=== PATIENT | female | born 1985 | race Caucasian/White ===

== ENCOUNTER 2019-12-28 16:40 | Emergency (ER) | payer OTHER, SELFPAY ==
--- NOTE | ~2019-12-28 | XR_ITS ---
EXAMINATION: XR chest 2V DATE: 12/28/2019 17:35 INDICATION: Cough TECHNIQUE: PA and lateral views of the chest are obtained. COMPARISON: None available FINDINGS: The lungs are free of acute opacities. There is no pleural effusion or pneumothorax. The ca rdiomediastinal silhouette is normal. The visualized bones and soft tissues are unremarkable. IMPRESSION: 1. No acute cardiopulmonary abnormality. Reviewed, dictated and finalized at location A.
[2019-12-28 16:46] VITALS: BP 93/70; PULSE 85; RESP 20; TEMP 37.2; O2SAT 98
--- NOTE | 2019-12-28 17:16 | ED.GENADULT ---
HPI - General Adult General Chief complaint: Upper Respiratory Infection Stated complaint: cough/chest congestion/sore throat/headache Time Seen by Provider: 12/28/19 17:16 Source: patient and RN notes reviewed Mode of arrival: ambulatory Limitations: no limitations History of Present Illness HPI narrative: This is a 34 years old female presented office for evaluation of cough for the last 5-day. Cough was productive at the beginning and has been nonproductive for the last 2-day. She also reported a lot of sinus drainage and sore throat. She also reported headache which she contributes to nonstop coughing. She has tried [id number] guaifenesin for cough with helped temporarily but did not help reduce her cough. Denies sick contact. She does not smoke. Related Data Home Medications Medication Instructions Recorded Confirmed Suboxone 12/28/19 bupropion HCl PO 12/28/19 sumatriptan succinate mg PO 12/28/19 topiramate 12/28/19 Allergies Allergy/AdvReac Type Severity Reaction Status Date / Time amoxicillin Allergy Unknown SERUM Verified 06/04/18 19:06 SICKNESS Sulfa (Sulfonamide AdvReac Unknown THRUSH Verified 06/04/18 19:06 Antibiotics) Review of Systems Review of Systems: Narrative: CONSTITUTIONAL: Denies fever, chills ENT:Reports congestion, sore throat CARDIOVASCULAR: Denies chest pain, palpitation RESPIRATORY: Denies dyspnea, wheezing. Reports annoying cough GASTROINTESTINAL: Denies abdominal pain, nausea, vomiting GENITOURINARY: Denies urinary symptoms or discharge SKIN: Denies rash MUSCULOSKELETAL: Denies acute back pain NEUROLOGIC: Denies lightheaded All other systems reviewed are negative, except as documented in HPI. PMFSH Past Medical History Medical History (Updated 12/28/19 @ 18:01 by HANDY Faustin) History of colitis Hx of migraines Social History Social History (Updated 12/28/19 @ 17:29 by HANDY Faustin) Smoking status: Never smoker Comments At time of signature, I agree with nursing past medical, surgical, social and family history. There is no relevant family history pertinent to the presenting complaint. Exam Narrative: Exam Narrative: GENERAL: This is a well-nourished, well-developed patient, in no apparent distress. EYES: PERRL. Sclera clear/white. Vision is grossly intact. EARS: External ears normal, auditory canals clear and without drainage, TMs normal without perforation. Hearing grossly intact. NOSE: External nose normal with no obvious nasal discharge, nares without redness, no rhinorrhea. THROAT: Mucous membranes moist, posterior pharynx clear. NECK: Neck supple, non-tender without lymphadenopathy, masses or thyromegaly. CARDIOVASCULAR: Regular rate and rhythm without murmurs, gallops, or rubs. RESPIRATORY: Clear to auscultation. Breath sounds equal bilaterally. No wheezes, rales, or rhonchi. GASTROINTESTINAL: Abdomen soft, non-tender, nondistended. Bowel sounds are active. No hepato-splenomegaly, or palpable masses. No guarding. SKIN: warm, intact with no suspicious lesions or rash, good texture and turgor. NEURO: awake, alert, and oriented to person, place and time. There were no obvious focal neurologic abnormalities. Steady gait EXTREMITIES: Normal range of motion. No edema. No calf tenderness. Negative Homans sign bilaterally. BACK: Nontender without deformity or crepitance. No flank tenderness. Maxim Coma Scale Eye Opening: Spontaneous 4 [place] Coma Scale Motor: Obeys Commands 6 [place] Coma Scale Verbal: Oriented 5 Course Vital Signs Vital signs: Vital Signs Temperature 98.9 F 12/28/19 16:46 Pulse Rate 85 12/28/19 16:46 Respiratory Rate 12/28/19 16:46 Blood Pressure 93/70 L 12/28/19 16:46 Pulse Oximetry 98 12/28/19 16:46 Temperature 98.9 F 12/28/19 16:46 Pulse Rate 85 12/28/19 16:46 Respiratory Rate 12/28/19 16:46 Blood Pressure 93/70 L 12/28/19 16:46 Pulse Oximetry 98 12/28/19 16:
[2019-12-28] MEDS: ALBUTEROL SULFATE NEB 2.5 MG/3 ML INH INHALATION (17:38)
[2019-12-28] MEDS: IPRATROPIUM BR 0.02% INH SOLN 0.5 MG/2.5 ML VIAL INHALATION (17:38)
== END 2019-12-28 18:05 | disposition home or self-care (01) ==
PROVIDERS: Emergency Provider Nurse Practitioner; PCP Nurse Practitioner
DX: J06.9 Acute upper respiratory infection, unspecified (principal); J40 Bronchitis, not specified as acute or chronic; Z20.828 Contact with and (suspected) exposure to other viral communicable diseases
CPT/HCPCS: 71046; 99213; G0463

== ENCOUNTER 2020-08-23 14:26 | Emergency (ER) | payer OTHER, SELFPAY ==
--- NOTE | 2020-08-23 14:34 | ED.GENADULT ---
HPI - General Adult General Chief complaint: Abdominal Pain Stated complaint: pain in upper abdomen and up Time Seen by Provider: 08/23/20 14:34 Source: patient Mode of arrival: ambulatory Limitations: no limitations History of Present Illness HPI narrative: 34-year-old female patient presents to the [facility] with complaints of epigastric pain that started about 4 days ago and has intermittently gotten worse over the last 4 days. Patient states she has tried taking Tums, and some Pepcid [id number]. Patient states it is now causing her to cough, clear her throat and feels like at times she has a sore throat. Patient states it does feel at times like she has some acid or burning going up her chest from her epigastric area. Denies any vomiting, diarrhea or fevers. Patient denies shortness of breath at this time. Related Data Home Medications Medication Instructions Recorded Confirmed bupropion HCl 300 mg PO DAILY 12/28/19 08/23/20 sumatriptan succinate 50 mg PO .PRN PRN 12/28/19 08/23/20 topiramate 50 mg PO DAILY 12/28/19 08/23/20 buprenorphine-naloxone 1 film BUCCAL TID 08/23/20 08/23/20 Allergies Allergy/AdvReac Type Severity Reaction Status Date / Time amoxicillin Allergy Unknown SERUM Verified 08/23/20 14:46 SICKNESS Sulfa (Sulfonamide AdvReac Unknown THRUSH Verified 08/23/20 14:46 Antibiotics) Review of Systems Review of Systems: Narrative: CONSTITUTIONAL: Denies fever, chills, or sweats. EYES: Denies visual changes, redness, or discharge. ENT: Denies rhinorrhea, congestion, positive sore throat, or denies otalgia. CARDIOVASCULAR: Denies chest pain, palpitations, or edema. RESPIRATORY: Positive nonproductive cough, denies dyspnea. GASTROINTESTINAL: Denies abdominal pain, nausea, vomiting, or diarrhea. Positive epigastric pain x4 days GENITOURINARY: Denies dysuria or hematuria. SKIN: Denies rash or itching. MUSCULOSKELETAL: Denies back pain, joint pain, or myalgia. NEUROLOGIC: Denies headache, numbness, or weakness. PSYCHIATRIC: Denies anxiety or depression. [facility] Past Medical History Medical History (Updated 08/23/20 @ 14:58 by HANDY Deleon) Anxiety Bronchitis Depression History of colitis Hx of migraines Kidney stones Left inguinal hernia Pneumonia June 2016 Prolapsed bladder Surgical History Surgical History (Updated 08/23/20 @ 14:36 by HANDY Deleon) H/O tubal ligation History of hysterectomy Social History Social History (Updated 08/23/20 @ 14:36 by HANDY Deleon) Smoking status: Never smoker Substance use: former Other substance usage details: Patient on Suboxone Comments At the time of my signature I agree with nursing past medical history, surgical, social, and family history. There is no relevant family history pertinent to the presenting complaint. Exam Narrative: Exam Narrative: GENERAL: Well-appearing, well-nourished, and in no acute distress. HEAD: Normocephalic, atraumatic. EYES: PERRLA and EOMI. ENT: Nares clear, no rhinorrhea or epistaxis. Mucous membranes moist. Posterior pharynx with no erythema, tonsillar Marlon, exudates or lesions present. Bilateral TMs are clear with no erythema or foreign bodies in the canal. NECK: Supple. No lymphadenopathy CHEST: Clear to auscultation. No respiratory distress. Patient able talk in clear complete sentences. No tripoding noted. HEART: Regular rate and rhythm. No murmur heard. Normal peripheral pulses. ABDOMEN: Soft, flat, nondistended. No guarding, rebound tenderness, or rigid. No pulsatilla masses. Bowel sounds present in all four quadrants. No organomegaly. Negative Montaño?s sign. No periumbicial tenderness. No Supra public tenderness or distension. Good femoral pulses bilaterally. No hernia noted. No scars or surface trauma. EXTREMITIES: Normal range of motion. No edema. SKIN: Warm, dry, no rash. NEURO: No focal deficits. Alert and oriented x3. Course Reevaluation(s) Reevaluat
[2020-08-23 14:42] VITALS: BP 119/68; PULSE 92; RESP 18; TEMP 36.1; O2SAT 97
[2020-08-23] MEDS: LIDOCAINE HCL 2% VISC SOLN 15 ML UDC PO ×2 (14:55→15:50)
[2020-08-23] MEDS: MAG HYDROX/AL HYDROX/SIMETH 30 ML UDC PO ×2 (14:55→15:50)
== END 2020-08-23 15:54 | disposition home or self-care (01) ==
PROVIDERS: Emergency Provider Nurse Practitioner Family; PCP Nurse Practitioner
DX: K21.9 Gastro-esophageal reflux disease without esophagitis (principal); F41.9 Anxiety disorder, unspecified; F32.9 Major depressive disorder, single episode, unspecified
CPT/HCPCS: 99213; A9270; G0463

== ENCOUNTER 2022-07-17 09:01 | Emergency (ER) | payer OTHER, SELFPAY ==
[2022-07-17 09:05] VITALS: BP 111/67; PULSE 90; RESP 16; TEMP 36.8; O2SAT 100
--- NOTE | 2022-07-17 09:34 | ED.DENTAL ---
HPI - Dental/Oral General Chief complaint: Dental/Oral Stated complaint: Abcess tooth Time Seen by Provider: 07/17/22 09:35 Source: patient, RN notes reviewed and old records reviewed Mode of arrival: ambulatory Limitations: no limitations History of Present Illness HPI Narrative: 36-year-old female presents to [facility] with complaints of dental pain to the left lower molar which broke off 2 weeks ago. Patient states 4 days ago she started having pain to that area and has noted some purulent drainage also from region with an abscess busting on gum this morning when she brushed her teeth with some bruising on gum noted.Patient does have mild swelling noted to her left jaw area. Patient denies any difficulty swallowing or any shortness of breath. Patient reports she has been taking ibuprofen for her discomfort. MD Complaint: tooth pain Location: Tooth # (18) Onset (ago): day(s) (4) Treatment prior to arrival: oral analgesic (ibuprofen) Related Data Home Medications Medication Instructions Recorded Confirmed buprenorphine 8 mg-naloxone 2 mg 1 film buccal TID 08/23/20 07/17/22 sublingual film Allergies Allergy/AdvReac Type Severity Reaction Status Date / Time amoxicillin Allergy Unknown SERUM Verified 07/17/22 09:31 SICKNESS Sulfa (Sulfonamide AdvReac Unknown THRUSH Verified 07/17/22 09:31 Antibiotics) Review of Systems Review of Systems: CONSTITUTIONAL: Denies fever, chills, or sweats. ENT: Denies rhinorrhea, congestion, sore throat, or otalgia. Reports dental pain to #18 tooth which is broken off and has some left jaw swelling and drainage from gum area. CARDIOVASCULAR: Denies chest pain, palpitations, or edema. RESPIRATORY: Denies cough or dyspnea. SKIN: Denies rash or itching. MUSCULOSKELETAL: Denies myalgia. NEUROLOGIC: Denies headache All systems reviewed & are unremarkable except as noted in HPI and below PMFSH Past Medical History Medical History (Updated 07/17/22 @ 09:54 by Betzy Mclean NP) Anxiety Bronchitis Depression History of colitis Hx of migraines Kidney stones Left inguinal hernia Pneumonia June 2016 Prolapsed bladder Surgical History Surgical History H/O tubal ligation History of hysterectomy Social History Social History Smoking status: Never smoker Substance use: former Other substance usage details: Patient on Suboxone Comments At time of signature, agree with nursing past medical, surgical, social and family history. There is no relevant family history pertinent to the presenting complaint Exam Narrative: GENERAL: Well-appearing, well-nourished, and in no acute distress. HEAD: Normocephalic, atraumatic. EYES: PERRLA and EOMI. ENT: Nares clear, no rhinorrhea or epistaxis. Mucous membranes moist. Broken tooth to #18 with drainage from gum, facial swelling to left jaw area, no trismus or any Denis angina noted NECK: Supple.no lymphadenopathy CHEST: Clear to auscultation. No respiratory distress.No couth or congestion noted, SAO2 100% on room air HEART: Regular rate and rhythm. No murmur heard. Normal peripheral pulses. SKIN: Warm, dry, no rash. NEURO: No focal deficits. Alert and oriented x3. Course Course Emergency Course: Patient is aware of diagnosis, understands and agrees to treatment plan. Anticipatory guidance given. Patient agrees to follow-up as directed and is aware of reasons to seek care at the emergency department. Portions of this record may have been created with voice recognition software Level of Care: Express Care Visit Vital Signs Vital signs: Vital Signs Temperature 36.8 C 07/17/22 09:05 Pulse Rate 90 07/17/22 09:05 Respiratory Rate 16 07/17/22 09:05 Blood Pressure 111/67 07/17/22 09:05 Pulse Oximetry 100 07/17/22 09:05 Oxygen Delivery Room Air 07/17/22 09:05 Temperature 36.8 C
== END 2022-07-17 09:58 | disposition home or self-care (01) ==
PROVIDERS: Emergency Provider Registered Nurse
DX: K04.7 Periapical abscess without sinus (principal); K02.9 Dental caries, unspecified; F41.9 Anxiety disorder, unspecified; F32.9 Major depressive disorder, single episode, unspecified
CPT/HCPCS: 99213; G0463

== ENCOUNTER 2023-04-06 13:06 | Emergency (ER) | payer OTHER, SELFPAY ==
[2023-04-06 13:12] VITALS: BP 118/57; PULSE 79; RESP 16; TEMP 36.4; O2SAT 98
--- NOTE | 2023-04-06 14:10 | ED.GENADULT ---
HPI - General Adult General Chief complaint: Upper Respiratory Infection Stated complaint: Headache/Sore Throat Source: patient Mode of arrival: ambulatory Limitations: no limitations History of Present Illness HPI narrative: Patient presents for evaluation of sick symptoms for last 2 days. Symptoms include sinus congestion, mucopurulent discharge from the nares, sore throat, productive cough of yellow sputum and chills. No fever, nausea, vomiting or diarrhea. No recent sick contacts to her knowledge. She has taken sudafed, ibuprofen and tylenol for her symptoms. She does not smoke. She has had sinus infections in the past and this feels similar. Related Data Home Medications Medication Instructions Recorded Confirmed buprenorphine 8 mg-naloxone 2 mg 1 film buccal TID 08/23/20 04/06/23 sublingual film sumatriptan succinate 50 mg tablet 50 mg PO USEASDIRECTD PRN Migraine 04/06/23 04/06/23 Headache Allergies Allergy/AdvReac Type Severity Reaction Status Date / Time amoxicillin Allergy Unknown SERUM Verified 07/17/22 09:31 SICKNESS Sulfa (Sulfonamide AdvReac Unknown THRUSH Verified 07/17/22 09:31 Antibiotics) Review of Systems Review of Systems: CONSTITUTIONAL: Reports chills. Denies fever or sweats. EYES: Denies visual changes, redness, or discharge. ENT: Repots sinus congestion, thick mucopurulent discharge from the nares, and sore throat CARDIOVASCULAR: Denies chest pain, palpitations, or edema. RESPIRATORY: Reports productive cough of white/yellow sputum. Denies GASTROINTESTINAL: Denies abdominal pain, nausea, vomiting, or diarrhea. GENITOURINARY: Denies dysuria or hematuria. SKIN: Denies rash or itching. MUSCULOSKELETAL: Denies back pain, joint pain, or myalgia. NEUROLOGIC: Denies headache, numbness, dizziness, or weakness. PSYCHIATRIC: Denies anxiety or depression. [facility] Past Medical History Medical History Anxiety Bronchitis Depression History of colitis Hx of migraines Kidney stones Left inguinal hernia Pneumonia June 2016 Prolapsed bladder Surgical History Surgical History H/O tubal ligation History of hysterectomy Family History Family History Mother Family history non-contributory Social History Social History Smoking status: Never smoker Substance use: former Other substance usage details: Patient on Suboxone Living arrangements: with family Gender identity (if verbalized by the patient): Female Spiritual care concerns: No Exam Narrative: GENERAL: Well-appearing, well-nourished, and in no acute distress. HEAD: Normocephalic, atraumatic. EYES: PERRLA and EOMI. ENT: Bilateral nares have thick mucopurulent discharge present. Bilateral maxillary and frontal sinus tenderness. Oropharynx without tonsillar hypertrophy exudate or other lesions. Bilateral TMs pearly haq nonbulging NECK: Supple. No adenopathy or masses. No carotid bruits or JVD CHEST: Clear to auscultation. No respiratory distress. No wheezes rales or rhonchi HEART: Regular rate and rhythm. No murmur heard. Normal peripheral pulses. ABDOMEN: Soft, nontender, nondistended, normal active bowel sounds. EXTREMITIES: Normal range of motion. No edema. SKIN: Warm, dry, no rash. NEURO: No focal deficits. Alert and oriented x3. PSYCH: Normal mood and affect. Course Course Emergency Course: This is a 37-year-old female who presented for evaluation of sick symptoms. COVID, influenza, strep, chest x-ray were all negative. Exam is consistent with bacterial sinusitis based upon the characteristics of discharge as mucopurulent. Will dc with doxycycline. Increase hydration. OTC agents for symptom management. Follow up with primary provider. Go t
== END 2023-04-06 14:22 | disposition home or self-care (01) ==
PROVIDERS: Emergency Provider Nurse Practitioner; PCP Physician Assistant
DX: J01.90 Acute sinusitis, unspecified (principal)
CPT/HCPCS: 87081; 87804; 87880; 99213; G0463

== ENCOUNTER 2023-04-13 11:17 | Emergency (ER) | payer OTHER, SELFPAY ==
--- NOTE | 2023-04-13 11:21 | ED.URI ---
HPI - URI/Sore Throat General Chief Complaint: Upper Respiratory Infection Stated Complaint: no voice/ears/sinus Source: patient and RN notes reviewed Mode of arrival: ambulatory Limitations: no limitations History of Present Illness HPI Narrative: Patient is a 37-year-old female who presents to the [facility] with complaints worsening sinus infection. Patient states that she was seen here last week and prescribed doxycycline for the a sinus infection. Patient states that her symptoms are getting worse instead of better. She reports nasal congestion, postnasal drip, sore throat, and losing her voice. She also endorses a frequent productive cough with green sputum. She denies recent fever. Denies chest pain or shortness of breath. Denies abdominal pain, nausea, vomiting, diarrhea. Patient states that she took an at-home COVID test this morning which was negative. Patient states that she has 3 days left of the doxycycline she was prescribed. Respirations are nonlabored. Related Data Home Medications Medication Instructions Recorded Confirmed buprenorphine 8 mg-naloxone 2 mg 1 film buccal TID 08/23/20 04/13/23 sublingual film sumatriptan succinate 50 mg tablet 50 mg PO USEASDIRECTD PRN Migraine 04/06/23 04/13/23 Headache Allergies Allergy/AdvReac Type Severity Reaction Status Date / Time amoxicillin Allergy Unknown SERUM Verified 04/13/23 11:26 SICKNESS Sulfa (Sulfonamide AdvReac Unknown THRUSH Verified 04/13/23 11:26 Antibiotics) Review of Systems Review of Systems: CONSTITUTIONAL: Denies fever, chills, or sweats. EYES: Denies visual changes, redness, or discharge. ENT: Denies otalgia. Reports sore throat. Reports nasal congestion. CARDIOVASCULAR: Denies chest pain, palpitations, or edema. RESPIRATORY: Reports cough but dyspnea. GASTROINTESTINAL: Denies abdominal pain, nausea, vomiting, or diarrhea. GENITOURINARY: Denies dysuria or hematuria. SKIN: Denies rash or itching. MUSCULOSKELETAL: Denies back pain, joint pain, or myalgia. NEUROLOGIC: Denies headache, numbness, or weakness. Pertinent positives per HPI. [facility] Past Medical History Medical History Anxiety Bronchitis Depression History of colitis Hx of migraines Kidney stones Left inguinal hernia Pneumonia June 2016 Prolapsed bladder Surgical History Surgical History H/O tubal ligation History of hysterectomy Family History Family History Mother Family history non-contributory Social History Social History Smoking status: Never smoker Substance use: former Other substance usage details: Patient on Suboxone Living arrangements: with family Gender identity (if verbalized by the patient): Female Spiritual care concerns: No Comments At the time of my signature, I reviewed and agree with the nursing past medical, surgical, social, and family history. There is no relevant family history pertinent to the patient complaint. Exam Narrative: GENERAL: This is a well-nourished, well-developed patient, in no apparent distress. HEAD: normocephalic, atraumatic. EYES: Sclera clear/white. Vision is grossly intact. EARS: External ears normal. Hearing grossly intact. NOSE: External nose normal. Mild congestion. THROAT: Mucous membranes moist, Oropharyngeal erythema without exudate or ulceration. NECK: Neck supple, non-tender without lymphadenopathy, masses or thyromegaly. CARDIOVASCULAR: Regular rate and rhythm without murmurs, gallops, or rubs. RESPIRATORY: Clear to auscultation. Breath sounds equal bilaterally. No wheezes, rales, or rhonchi. GASTROINTESTINAL: Abdomen soft, non-tender, nondistended. Bowel sounds are active. No hepato-splenomegaly, or palpable masses. No guarding. SKIN: war
[2023-04-13 11:28] VITALS: BP 101/72; PULSE 79; RESP 16; TEMP 36.2; O2SAT 100
== END 2023-04-13 12:00 | disposition home or self-care (01) ==
PROVIDERS: Emergency Provider Nurse Practitioner; PCP Physician Assistant
DX: B34.9 Viral infection, unspecified (principal); J01.90 Acute sinusitis, unspecified
CPT/HCPCS: 87081; 87880; 99213; G0463

== ENCOUNTER 2024-02-29 11:11 | Emergency (ER) | payer OTHER, SELFPAY ==
[2024-02-29 11:38] VITALS: BP 118/65; PULSE 70; RESP 20; TEMP 36.7; O2SAT 100
--- NOTE | 2024-02-29 12:29 | ED.GENADULT ---
HPI - General Adult General Chief complaint: Ear Stated complaint: headaches/left ear lump Time Seen by Provider: 02/29/24 12:29 Source: patient, RN notes reviewed and old records reviewed Mode of arrival: ambulatory Limitations: no limitations History of Present Illness HPI narrative: 38-year-old female presents to the [facility] with complaints of a headache and lump 2 below the left ear. Headache for week. Left ear discomfort started a day ago. Treatments prior to arrival: none Related Data Home Medications Medication Instructions Recorded Confirmed buprenorphine 8 mg-naloxone 2 mg 1 film buccal TID 08/23/20 02/29/24 sublingual film sumatriptan succinate 50 mg tablet 50 mg PO USEASDIRECTD PRN Migraine 04/06/23 02/29/24 Headache Allergies Allergy/AdvReac Type Severity Reaction Status Date / Time amoxicillin Allergy Unknown SERUM Verified 02/29/24 11:56 SICKNESS Sulfa (Sulfonamide AdvReac Unknown THRUSH Verified 02/29/24 11:56 Antibiotics) Review of Systems Review of Systems: All systems reviewed & are unremarkable except as noted in HPI and below Constitutional: Constitutional: Reports no additional constitutional complaints Eyes: Eyes: Reports no additional eye complaints ENT: Reports as per HPI and Reports otalgia Cardiovascular: Cardiovascular: Reports no additional cardiovascular complaints, Denies chest pain and Denies dyspnea Respiratory: Respiratory: Reports no additional respiratory complaints, Denies chest congestion, Denies cough and Denies dyspnea Gastrointestinal: Gastrointestinal: Reports no additional gastrointestinal complaints, Denies abdominal pain, Denies nausea and Denies vomiting Musculoskeletal: Musculoskeletal: Reports no additional musculoskeletal complaints Integumentary/Breasts: Skin/Breast: Reports system reviewed and no additional complaints, except as docu Neurologic: Reports system reviewed and no additional complaints, except as documented Psychiatric: Psychiatric: Reports no additional psychiatric complaints Allergic/Immunologic: Allergic/Immunologic: Reports no additional allergic/immunologic complaints [facility] Past Medical History Medical History Anxiety Bronchitis Depression History of colitis Hx of migraines Kidney stones Left inguinal hernia Pneumonia June 2016 Prolapsed bladder Surgical History Surgical History H/O tubal ligation History of hysterectomy Family History Family History Mother Family history non-contributory Social History Social History Smoking status: Never smoker Substance use: former Other substance usage details: Patient on Suboxone Living arrangements: with family Gender identity (if verbalized by the patient): Female Spiritual care concerns: No Comments At the time of my signature, I reviewed and agree with the nursing past medical, surgical, social, and family history. There is no relevant family history pertinent to the patient complaint. Exam Const: General: cooperative, healthy appearing, comfortable, no acute distress, well developed, alert and well nourished Nutritional Appearance: well nourished Orientation/consciousness: patient oriented x3 Limitations: no limitations HENMT: Head: normal to inspection Ears: hearing grossly normal bilaterally, external ears normal, TM's normal bilaterally and Abnormal EAC present erythema on the left and EAC tenderness on the left; no edema, no foreign body and no otic discharge Face/Nose/Sinus: Normal external nose present, Normal nares present, Normal nasal mucous membranes and turbinates present, normal facial exam and face symmetric Face and sinus: normal facial exam and face symmetric Eyes: General: appearance normal, both
== END 2024-02-29 12:50 | disposition home or self-care (01) ==
PROVIDERS: Emergency Provider Nurse Practitioner; PCP Physician Assistant
DX: H61.892 Other specified disorders of left external ear (principal)
CPT/HCPCS: 99213; G0463

== ENCOUNTER 2024-06-22 15:48 | Emergency (ER) | payer OTHER, SELFPAY ==
--- NOTE | 2024-06-22 16:01 | ED.FEMALEGU ---
HPI - Female Genitourinary General Chief complaint: Urogenital-Female Stated complaint: poss sinus infection/UTI Time Seen by Provider: 06/22/24 17:35 Source: patient, RN notes reviewed and old records reviewed Mode of arrival: ambulatory Limitations: no limitations History of Present Illness HPI Narrative: 38 year old female preent to express care with complaints of urinary burning and frequency for 1 week duration and has noted some blood in her urine and is cloudy. Patient also report other symptoms of sore throat sinus congestion and drainage for the past few days.Patient reports no fevers chills or any nausea or vomiting. Patient reports no CVA tenderness or any suprapubic pain. MD elicited complaint: UTI and other (sore throat and sinus congestion with drainage) Onset (ago): week(s) (1) Location of symptoms: urethra Severity scale (1-10): 3 Vaginal discharge: none Vaginal bleeding: none Treatment prior to arrival: acetaminophen Related Data Home Medications ?Medication ?Instructions ?Recorded ?Confirmed ?Last Taken ?Type buprenorphine 8 mg-naloxone 2 mg 1 film buccal TID 08/23/20 06/22/24 Unknown History sublingual film sumatriptan succinate 50 mg tablet 50 mg PO USEASDIRECTD PRN Migraine 04/06/23 02/29/24 Unknown History Headache topiramate 50 mg tablet mg 06/22/24 Unknown History Allergies Allergy/AdvReac Type Severity Reaction Status Date / Time amoxicillin Allergy Unknown SERUM Verified 06/22/24 16:14 SICKNESS Sulfa (Sulfonamide AdvReac Unknown THRUSH Verified 06/22/24 16:14 Antibiotics) Review of Systems Review of Systems: CONSTITUTIONAL: Denies fever, chills, or sweats. CARDIOVASCULAR: Denies chest pain, palpitations, or edema. RESPIRATORY: Denies cough or dyspnea. reports sore throat and sinus congestion and drainage GASTROINTESTINAL: Denies abdominal pain, nausea, vomiting, or diarrhea. GENITOURINARY: Reports dysuria, frequency, urgency. Denies flank pain positive for hematuria. SKIN: Denies rash or itching. MUSCULOSKELETAL: Denies back pain or myalgia. Denies CVA tenderness NEUROLOGIC: Denies headache All systems reviewed & are unremarkable except as noted in HPI and below PMFSH Past Medical History Medical History Anxiety Depression Prolapsed bladder Left inguinal hernia Pneumonia June 2016 Bronchitis Kidney stones Hx of migraines History of colitis Surgical History Surgical History History of hysterectomy H/O tubal ligation Family History Family History Mother Family history non-contributory Social History Social History Smoking status: Never smoker Substance use: former Other substance usage details: Patient on Suboxone Living arrangements: with family Gender identity (if verbalized by the patient): Female Spiritual care concerns: No Comments At time of signature, agree with nursing past medical, surgical, social and family history. There is no relevant family history pertinent to the presenting complaint Exam Narrative: GENERAL: Well-appearing, well-nourished, and in no acute distress. HEAD: Normocephalic, atraumatic. NECK: Supple.no lymphadenopathy, reports sore throat and sinus congestion with drainage no acute swelling of throat CHEST: Clear to auscultation. No respiratory distress. HEART: Regular rate and rhythm. No murmur heard. Normal peripheral pulses. ABDOMEN: Soft, nontender, nondistended, normal active bowel sounds. No CVA tenderness burning and frequency of urination with some blood noted in urine. EXTREMITIES: Normal range of motion. No edema. SKIN: Warm, dry, no rash. NEURO: No focal deficits. Alert and oriented x3. Course Course Emergency Course: Patient is aware of diagnosis, understands and agrees to treatment plan.? Anticipatory guidance given.? Patient agrees to follow-up as directed and is aware of reasons to seek care at the emergency department. Portions of this record may have been created with voice recognition software Level of Care: Express Care Visit Vital Signs Vital signs: Vital Signs Temperature 36.8 C 06/22/24 16:08 Pulse Rate 73 06/22/24 16:08 Respiratory Rate 18 06/22/24 16:08 Blood Pressure 123/51 L 06/22/24 16:08 Pulse Oximetry 100 06/22/24 16:08 Oxygen Delivery Room Air 06/22/24 16:08 Temperature 36.8 C 06/22/24 16:08 Pulse Rate 73 06/22/24 16:08 Respiratory Rate 18 06/22/24 16:08 Blood Pressure 123/51 L 06/22/24 16:08 Pulse Oximetry 100 06/22/24 16:08 Oxygen Delivery Room Air 06/22/24 16:08 MDM - Female Genitourinary MDM Narrative Medical decision making narrative: Exam findings and UA show no acute concerns or changes; patient is non-toxic appearing and is in no distress.? Patient is appropriate for outpatient treatment and follow-up. Differential Diagnosis Differential diagnosis: Likely urinary tract infection, cystitis and other (URI) Medical Records Attestation: I reviewed the patient's medical records. Lab Data Attestation: I reviewed the patient's lab results. Lab results narrative: strep screen negative, culture sent; see urine dip report positive for blood,leukocytes and nitrite positive Labs: Lab Results 06/22/24 06/22/24 Range/Units 16:14 16:41 POC Urine Color Yellow POC Urine Clarity Cloudy POC Urine pH 5.5 POC Ur Specif [place] 1.030 POC Urine Protein 1+ (Negative) POC Ur Glucose (UA) Negative (Negative) POC Urine Ketones Negative (Negative) POC Urine Blood Trace (Negative) POC Urine Nitrite Positive (Negative) POC Urine Bilirubin Negative (Negative) POC Urine Urobilinogen 0.2 POC U Leukocyte Esteras 1+ (Negative) POC Grp A Strep Screen Negative (Negative) reviewed Critical Care Time Critical Care Time Critical Care Time: No Discharge Plan Discharge Clinical Impression: Urinary tract infection Qualifiers: Urinary tract infection type: site unspecified Hematuria presence: with hematuria Qualified Code(s): N39.0 - Urinary tract infection, site not specified; R31.9 - Hematuria, unspecified Pharyngitis Qualifiers: Pharyngitis/tonsillitis etiology: unspecified etiology Qualified Code(s): J02.9 - Acute pharyngitis, unspecified Patient Disposition: Home, Self-Care Condition: Stable Instructions: Antibiotic Form, Urinary Tract Infection in Women (ED), Pharyngitis (ED) Additional Instructions: Increase fluids especially cranberry juice and water Avoid caffeine and carbonated beverages Antibiotic as directed Tylenol/ibuprofen for pain or fever Follow-up with her primary care provider if further problems or concerns Recheck if you have fever over 101, nausea and vomiting. Zyrtec Claritin or Nara daily include plain Sudafed for sinus congestion and drainage monitor for any fevers If your symptoms persist, change or worsen significantly before you can contact your personal physician then please, without delay, go to the emergency department for further evaluation. Follow-up with PCP in 7-10 days or sooner if needed Follow up with PCP soon in regards to your blood pressure which is elevated above threshold for referral. Blood pressure above 120/80 may indicate pre-hypertension. Patient Language: Belgian Prescriptions: New ciprofloxacin HCl 500 mg tablet 500 mg PO Q12H Qty: 14 0RF No Action sumatriptan succinate 50 mg tablet 50 mg PO USEASDIRECTD PRN (Reason: Migraine Headache) topiramate 50 mg tablet buprenorphine-naloxone 8-2 mg film 1 film buccal TID Follow-up/Referrals: Cassy,SEBAS Howard [Primary Care Provider] - Time of Disposition: 18:04 Quality [place] Coma Scale Eyes: Open Verbal: Oriented and Alert Motor: Follows Commands [place] Coma Total Score: 15
[2024-06-22 16:08] VITALS: BP 123/51; PULSE 73; RESP 18; TEMP 36.8; O2SAT 100
[2024-06-22 16:31] LABS: EDUAAPPEAR Cloudy; EDUABILI Negative (Negative); EDUABLOOD Trace (Negative); EDUACOLOR1 Yellow; EDUAGLUCOSE Negative (Negative); EDUAKETONE Negative (Negative); EDUALEUKO 1+ (Negative); EDUANITRATE Positive (Negative); EDUAPH 5.5; EDUAPROTEIN 1+ (Negative); EDUAUROBILI 0.2
[2024-06-22 18:08] LABS: EDSTREPNEGPOS1 Negative (Negative)
== END 2024-06-22 18:08 | disposition home or self-care (01) ==
PROVIDERS: Emergency Provider Registered Nurse; PCP Physician Assistant
DX: N39.0 Urinary tract infection, site not specified (principal); J02.9 Acute pharyngitis, unspecified; R31.9 Hematuria, unspecified; F41.8 Other specified anxiety disorders
CPT/HCPCS: 81003; 87077; 87081; 87086; 87186; 87880; 99213; G0463

== ENCOUNTER 2024-07-11 08:45 | Emergency (ER) | payer OTHER, SELFPAY ==
[2024-07-11 08:54] VITALS: BP 128/99; PULSE 97; RESP 18; TEMP 37.4; O2SAT 100
--- NOTE | 2024-07-11 08:54 | ED.FEMALEGU ---
HPI - Female Genitourinary General Chief complaint: Urogenital-Female Stated complaint: Urinary Problem Time Seen by Provider: 07/11/24 09:04 Source: patient and RN notes reviewed Mode of arrival: ambulatory Limitations: no limitations History of Present Illness HPI Narrative: 38-year-old female presents with concern for urinary tract infection. She reports she had a UTI 2 weeks ago and was treated with ciprofloxacin. Reports she felt better for about 2 days and then her symptoms returned about a week ago. She reports hematuria, it frequency, urgency, low back pain. She denies fever, chills, sweats. Reports nausea without vomiting. MD elicited complaint: UTI Related Data Home Medications ?Medication ?Instructions ?Recorded ?Confirmed ?Last Taken ?Type buprenorphine 8 mg-naloxone 2 mg 1 film buccal TID 08/23/20 06/22/24 Unknown History sublingual film sumatriptan succinate 50 mg tablet 50 mg PO USEASDIRECTD PRN Migraine 04/06/23 02/29/24 Unknown History Headache topiramate 50 mg tablet mg 06/22/24 Unknown History Allergies Allergy/AdvReac Type Severity Reaction Status Date / Time amoxicillin Allergy Unknown SERUM Verified 06/22/24 16:14 SICKNESS Sulfa (Sulfonamide AdvReac Unknown THRUSH Verified 06/22/24 16:14 Antibiotics) Review of Systems Review of Systems: CONSTITUTIONAL: Denies malaise, chills, sweats, or fever. CARDIOVASCULAR: Denies chest pain, palpitations, or edema. RESPIRATORY: Denies cough or dyspnea. GASTROINTESTINAL: Denies abdominal pain, vomiting, diarrhea. Reports nausea GENITOURINARY: Reports dysuria, frequency, urgency, hematuria. SKIN: Denies rash or itching. MUSCULOSKELETAL: Reports low back pain. Denies myalgia. All systems reviewed & are unremarkable except as noted in HPI and below PMFSH Past Medical History Medical History Anxiety Depression Prolapsed bladder Left inguinal hernia Pneumonia June 2016 Bronchitis Kidney stones Hx of migraines History of colitis Surgical History Surgical History History of hysterectomy H/O tubal ligation Family History Family History Mother Family history non-contributory Social History Social History Smoking status: Never smoker Substance use: former Other substance usage details: Patient on Suboxone Living arrangements: with family Gender identity (if verbalized by the patient): Female Spiritual care concerns: No Comments At time of signature, agree with nursing past medical, surgical, social and family history. There is no relevant family history pertinent to the presenting complaint Exam Narrative: GENERAL: Well-appearing, well-nourished, and in no acute distress. HEAD: Normocephalic. EYES: PERRLA, conjunctivae clear. NECK: Supple. No lymphadenopathy CHEST: Clear to auscultation. No respiratory distress. HEART: Regular rate and rhythm. ABDOMEN: Soft, nontender upon palpation, nondistended, normal active bowel sounds, no palpable or pulsatile masses, no guarding. No CVA tenderness SKIN: Warm, dry, no rash. NEURO: Alert and oriented x3. PSYCH: Normal mood and affect Course Course Emergency Course: Patient is aware of diagnosis, understands and agrees to treatment plan. Anticipatory guidance given. Patient agrees to follow-up as directed and is aware of reasons to seek care at the emergency department. Portions of this record may have been created with voice recognition software Level of Care: Express Care Visit Vital Signs Vital signs: Reviewed. MDM - Female Genitourinary MDM Narrative Medical decision making narrative: Exam findings and UA show no acute concerns or changes; patient is non-toxic appearing and is in no distress. Patient is appropriate for outpatient treatment and follow-up. Differential Diagnosis Differential diagnosis: Likely urinary tract infection and cystitis Critical Care Time Critical Care Time Critical Care Time: No Discharge Plan Discharge Clinical Impression: Urinary tract infection Patient Disposition: Home, Self-Care Condition: Stable Instructions: Antibiotic Form, Urinary Tract Infection in Women (ED) Additional Instructions: We will send a urine culture to the lab; if the culture identifies an organism that the prescribed antibiotic will not treat, you will receive a phone call from an urgent care staff member and an appropriate antibiotic will be prescribed. -Your symptoms should begin to improve within a day of starting antibiotics. But you should finish all the antibiotic pills you get. Otherwise your infection might come back. -Also recommend: increase water intake. Tylenol/ibuprofen as needed for pain or fever -Follow-up with your primary care provider for urine recheck or seek ER visit if condition worsens with high fever, nausea, vomiting and severe back pain. Patient Language: [place] Prescriptions: New levofloxacin 750 mg tablet 750 mg PO DAILY 5 Days Qty: 5 0RF No Action sumatriptan succinate 50 mg tablet 50 mg PO USEASDIRECTD PRN (Reason: Migraine Headache) topiramate 50 mg tablet buprenorphine-naloxone 8-2 mg film 1 film buccal TID Follow-up/Referrals: PHYSICIAN,[employer] OPERATOR [Primary Care Provider] - Time of Disposition: 09:11
[2024-07-11 09:03] LABS: EDUAAPPEAR Cloudy; EDUABILI Negative (Negative); EDUABLOOD Trace (Negative); EDUACOLOR1 Yellow; EDUAGLUCOSE Negative (Negative); EDUAKETONE Negative (Negative); EDUALEUKO 1+ (Negative); EDUANITRATE Positive (Negative); EDUAPROTEIN Trace (Negative); EDUAUROBILI 0.2
== END 2024-07-11 09:20 | disposition home or self-care (01) ==
PROVIDERS: Emergency Provider Nurse Practitioner
DX: N39.0 Urinary tract infection, site not specified (principal); B96.20 Unspecified Escherichia coli [E. coli] as the cause of diseases classified elsewhere
CPT/HCPCS: 81003; 87086; 87186; 99213; G0463

== ENCOUNTER 2025-05-08 17:32 | Emergency (ER) | payer OTHER, SELFPAY ==
--- OUTSIDE RECORDS SUMMARY | 2025-05-08 17:35 | XMS_ITS | Clinical Summary ---
Author Organization [facility] Address [address] [place] [address] Care Team Providers Care Straightedge Machine Operator Helper Name Role Phone Demond Barron MD Unavailable [phone] Anita Madera Primary Care Provider [phone] Taran Waddell NP Unavailable [phone] Allergies Active Allergy Reactions Criticality Noted Date Comments Amoxicillin Other (See comments) High Reaction: Serum Sickness, Potassium Other (See comments) High Reaction: Serum Sickness, Sulfa (Sulfonamide Antibiotics) Other (See comments) Low thrush Medications acetaminophen 500 mg capsule Take 2 capsules (1,000 mg total) by mouth every 6 (six) hours 30 tablet 05/11/2022 Active topiramate (TOPAMAX) 50 mg tablet Take 1 tablet (50 mg total) by mouth daily 07/19/2024 Active SUMAtriptan (IMITREX) 50 mg tablet Take 1 tablet (50 mg total) by mouth 2 (two) times a day as needed for migraine 08/22/2024 Active acetaminophen (TYLENOL) 325 mg tablet Take 2 tablets (650 mg total) by mouth every 6 (six) hours as needed for pain 09/08/2024 Active Active Problems Problem Noted Date Diagnosed Date Acute pyelonephritis 09/07/2024 Acute left flank pain 09/04/2024 Bloody diarrhea 04/04/2024 SBO (small bowel obstruction) 04/02/2024 Hematochezia 04/02/2024 Status post gastrointestinal surgery 06/04/2022 Fluid collection at surgical site, initial encou nter 05/08/2022 Prolapse of vaginal vault after hysterectomy JESÚS (stress urinary incontinence, female) 2021 Rectal prolapse 12/30/2021 Difficulty sleeping 02/26/2021 Assessment & Plan (02/26/2021 6:29 PM CDT): Patient vice use Benadryl at night to help with sleep. We discussed the adequate rest during the day can help with her symptoms. Chronic diarrhea 02/13/2021 Overview (02/13/2021): Well controlled on Lomotil and getting better. Dental caries 02/13/2021 IBD (inflammatory bowel disease) 02/13/2021 Overview (02/13/2021): Positive for Crohn IBS (irritable bowel syndrome) 02/13/2021 Assessment & Plan (02/26/2021 6:28 PM CDT): Patient used to have diarrhea but now she is having constipation. She has noticed more prominent lower abdominal pain. For better evaluation will schedule small- bowel series. Will address constipation. Follow-up in the office 6 weeks. Blood in stool 10/29/2020 Abdominal pain 10/29/2020 Assessment & Plan (02/26/2021 6:27 PM CDT): Likely secondary to the rectal bowel syndrome. Likely worsen because of the constipation. Discussed with the patient use Dulcolax 2 tablets every morning. Gastroesophageal reflux disease without esophagi tis 10/29/2020 Left flank pain 10/21/2017 Flank pain 10/21/2017 Ulcerative colitis with rectal bleeding 02/25/20 16 Overview (10/01/2016): Ulcerative colitis Left inguinal hernia 04/15/2015 Overview (10/01/2016): Left inguinal hernia Surgical History Surgery Date Site/Laterality Comments OTHER SURGICAL HISTORY 06/28/2012 - 06/27/2013 : OTHER SURGICAL HISTORY 06/28/2014 - 06/27/2015 : INGUINAL HERNIA REPAIR Inguinal Hernia repair OTHER SURGICAL HISTORY LGSIL pap with positive HR HPV: Colpo OTHER SURGICAL HISTORY 06/28/2014 - 06/27/2015 Sterilization: L/S bilat. salpingectomy COLPOSCOPY SALPINGECTOMY HERNIA REPAIR HYSTEROSCOPY 03/31/2017 [facility] COLONOSCOPY >8 yrs ago RECTAL PROLAPSE REPAIR 04/22/2022 Medical History Medical History Date Comments Hx Other Medical ; Outc ome: 39W0D week 8lb(s) 5 oz Female Hx Other Medical ; Outc ome: Live Hx Other Medical 01/2015 Nephrolithiasis Hx Other Medical 02/25/2016 LGSIL pap with positive HR HPV Hx Other Medical Sterilization Abnormal Pap smear of cervix Depression Migraine HPV (human papilloma virus) infection Kidney stone Inflammatory bowel disease Menorrhagia Ovarian cyst Pyelonephritis Urinary tract infection Varicella Chronic constipation PONV (postoperative nausea a nd vomiting) Family History Medical History Relation Name Comments Hypertension Father Hypertension; Breast cancer Father's Sister Cancer, lawanda ast; Colon cancer Father's Sister Diabetes Maternal Grandfather Diabete s mellitus; Heart disease Maternal Grandfather Heart disease; Diabetes Maternal Grandmother Diabete s mellitus; Heart disease Maternal Grandmother Heart disease; Breast cancer Other Cancer, breast ; Relation Name Status Comments Father Father's Sister Maternal Grandfather Maternal Grandmother Other Social History Tobacco Use Types Packs/Day Years Used Date Smoking Tobacco: Former Cigarettes Q uit: 2013 Smokeless Tobacco: Never Tobacco Cessation:Counseling Given: Not Answered Alcohol Use Standard Drinks/Week Comments No 0 (1 standard drink = 0.6 oz pur e alcohol) [employer] Answer Date Recorded In the past 12 months has [employer] oil, or water [employer] threatened to shut off services in your home? No 09/05/2024 Social Connection and Isolation Panel Answer Date Recorded In a typical week, how many times do you talk on the phone with family, friends, or neighbors? More than three times a week 09/05/2024 How often do you get togethe r with friends or relatives? More than three times a week 09/05/2024 How often do you attend [facility] or [facility] services? Never 09/05/2024 Do you belong to any clubs o r organizations such as hindu groups, unions, fraternal or athletic groups, or school groups? No 09/05/2024 How often do you attend meet ings of the clubs or organizations you belong to? Never 09/05/2024 Are you , , di vorced, , never , or living with a partner? Never 09/05/2024 AUDIT-C Answer Date Recorded Q1: How often do you have a drink containing alc ohol? Never 04/02/2024 Average Number of Drinks Not on file 024 Frequency of Binge Drinking Not on file 11/2023 Overall Financial Resource Strain (CARDIA) Answe r Date Recorded How hard is it for you to pa y for the very basics like food, housing, medical care, and heating? Not hard at all 09/05/2024 PHQ-2 Answer Date Recorded PHQ-2 Total Score 0 05/09/2022 Hunger Vital Sign Answer Date Recorded Within the past 12 months, y ou worried that your food would run out before you got the money to buy more. Never true 09/06/19 25 Within the past 12 months, t he food you bought just didn't last and you didn't have money to get more. Never true 09/05/2024 PRAPARE - Transportation Answer Date Re corded In the past 12 months, has l ack of transportation kept you from medical appointments or from getting medications? No 08/26 In the past 12 months, has l ack of transportation kept you from meetings, work, or from getting things needed for daily living? No 09/05/2024 Housing Stability Vital Sign Answer Enrique e Recorded In the last 12 months, was t here a time when you were not able to pay the mortgage or rent on time? No 05/09/2022 In the last 12 months, how many places have you lived? 1 05/09/2022 In the last 12 months, was t here a time when you did not have a steady place to sleep or slept in a assisted (including now)? No 05/09/2022 Housing Stability Vital Sign Answer Enrique e Recorded In the last 12 months, was t here a time when you were not able to pay the mortgage or rent on time? No 09/05/2024 In the past 12 months, how m any times have you moved where you were living? 0 09/05/2024 At any time in the past 12 m [facility], were you homeless or living in a assisted (including now)? No 09/05/2024 Personal Safety Answer Date Recorded Have you ever been in or are you currently in a harmful physical or emotional relationship or is someone making you feel afraid or unsafe? Denies 09/19/2024 Comments No Sex and Gender Information Value Date Recorded Sex Assigned at Not on file Legal Sex Female 1:57 PM [employer] Gender Identity Not on file Sexual Orientation Not on file Obstetrics History Para Term AB IAB SAB Ectopic Multiple Livin g Live Births 3 2 2 1 1 2 2 Date Outcome GA Total Labor Labor/2nd/3rd Weight Sex Type Anes PTL Alice A1 A5 Name Clin 2004 SAB 2012 Term 39w 0d 4.026 kg (8 lb 14 oz) F Vag-S pont Epidur al Y Livin g Fredi Complications:H/O pre-term l abor 2014 Term 39w 5d 3.856 kg (8 lb 8 oz) M Vag-S pont Epidur al N Livin g Boni Complications:Retained place nta Last Filed Vital Signs Vital Sign Reading Time Taken Comments Blood Pressure 132/76 09/19/2024 4:09 PM CDT Pulse 93 09/19/2024 4:09 PM CDT Temperature 36.7 C (98.1 F) 09/19/2024 1:03 PM CDT Respiratory Rate 16 09/19/2024 4:09 PM CDT Oxygen Saturation 100% 09/19/2024 4:09 PM CDT Inhaled Oxygen Concentration - - Weight 63.5 kg (139 lb 15.9 oz) 09/04/2024 7:25 PM CDT Height 160 cm (5' 3) 09/04/2024 7:25 PM CDT Body Mass Index 24.8 09/04/2024 7:25 PM CDT Plan of Treatment Health Maintenance Due Date Last Done Comments Breast Cancer Screening-Mammogram 1983 Regular Well Visit/Exam 18-64 12/02/2001 HPV Vaccines (1 - 3-dose SCDM series) 12/02/2010 Depression Screening 05/08/2023 05/08/2022 Influenza Vaccine (#1) 2025 DTaP/Tdap/Td Vaccine (9 - Td or Tdap) 05/02/2027 05/02/2017, 01/09/2015, 04/19/1998, Additional history exists Hepatitis C Screening Completed 02/25/2016, 014 Cervical Cancer Screening Discontinued 2016, 01/04/2017, 07/07/2016, Additional history exists Hepatitis B Screening Completed 10/05/2017 , 02/04/2016, 01/03/2016 Pneumococcal vaccine <65 Aged Out No longer eligible based on patient's age to complete this topic Medical Devices Implanted Type Area Customer Pricing Manager Device Identifier Shelf Expiration Date Model / Serial / Lot [employer] Upsylon 35.4cm Elongation Profile Lightweight Large Pore Low [id number] - Sn/A - [id number] Implanted:Qty: 1 on 04/22/2022 by Sukumar Reed MD at [facility] Mesh N/A: Bladder [employer] [id number] 02/25/2023 [id number] / N/A / [id number] [employer] Tvt Prolene 45x1.1cm Tape Mesh Transvaginal Blue [id number] - Sn/A - [id number] Implanted:Qty: 1 on 04/22/2022 by Sukumar Reed MD at [facility] Mesh N/A: Urethra [employer] [id number] 08/25/2024 [id number] / N/A / Procedures Procedure Name Priority Date/Time Associated Diagnosis Comments THINPREP LOCKET MAKER PAP (IMAGE GUIDED) LIQUID-BASED PREP Routine 01/04/2017 3:14 PM CDT SERUM HEPATITIS C AB Routine 02/25/2016 11:42 AM CDT from Last 3 Months or Most Recently Relevant to Health Maintenance Results * (ABNORMAL) ThinPrep Gynecologic Pap Test (Image-guided), Liquid-based Preparation (01/04/2017 3:14 PM CDT) Report status [facility]CELED [facility] Comment:Result canceled by t he ancillary Clinical information [facility] Comment:Information not prov ided LMP [facility] Comment:Information not prov ided Previous Pap [facility] - Comment:Information not prov ided Prev. Bx [facility] - Comment:Information not prov ided Source [facility] - Comment:Cervix, Endocervix Pap, specimen adequacy [facility] - Comment: Satisfactory for evaluation. Endocervical/transformation zone component present. Age and/or menstrual status not provided Pap, general categorization (A) [facility] - Comment:EPITHELIAL CELL ABNO RMALITY HPV interp (A) [facility] - Comment: Atypical Squamous Cells of Undetermined Significance (ASC-US) Infection: CANCELED [facility] - Comment:Result canceled by t steven ancillary COMMENTS [facility] - Comment: This Pap test has been evaluated with computer assisted technology. Suggest clinical correlation and follow-up as clinically appropriate Director Channel [facility] - Comment: PCM, CT(ASCP) CT screening location: [place] [address] [place] [address] Review bell person CANCELED [facility] - Comment:Result canceled by t steven ancillary Pathologist [facility] - Comment: Collin Lentz M.D., Board Certified in Anatomic Pathology and Cytopathology. (electronic signature) 01/04/2017 3:14 PM CDT 01/05/2017 6:36 AM CDT Narrative Resulting Agency Comment Performing Organization Information: Site ID: Name: [facility] Address: [address] [place] [address] Director: Capri Ramirez MD Gilbert Singleton MD LAB PATHOLOGY ORDERABLES F inal Result Performing Organization Address [facility]/[place] Co de Phone Number [facility] [place], [place] * Serum Hepatitis C ab (02/25/2016 11:42 AM CDT) HCV ab Negative Negative CDR HISTOR ICAL RESULTS Serum 02/25/2016 11:4 2 AM CDT Gilbert Singleton MD LAB BLOOD ORDERABLES Final Result Performing Organization Address City/[facility]/ZIP Co de Phone Number CDR HISTORICAL RESULTS from Last 3 Months or Most Recently Relevant to Health Maintenance Insurance [facility] Advance Directives For more information, please contact: [phone] * Full Code (Latest Code Status on File) Date Activated Date Inactivated Comments 09/04/2024 7:57 PM 09/08/2024 10:24 PM * Full Code Date Activated Date Inactivated Comments 04/04/2024 4:36 PM 04/05/2024 2:33 AM * Full Code Date Activated Date Inactivated Comments 04/04/2024 1:59 PM 04/04/2024 4:36 PM * Full Code Date Activated Date Inactivated Comments 04/04/2024 1:57 PM 04/04/2024 1:59 PM * Full Code Date Activated Date Inactivated Comments 05/08/2022 6:50 PM 05/11/2022 5:37 PM Care Teams Straightedge Machine Operator Helper Relationship Specialty Start Date End Date Anita Madera PA [address] [place] [address] PCP - General Emergency Medicine 04/02/24 Demond Barron MD [phone] [place] [address] Surgeon Colon and Rectal Surgery 12/31/21 Taran Waddell NP [address] [place] [address] Nurse Practitioner Urology 09/08/24
--- OUTSIDE RECORDS SUMMARY | 2025-05-08 17:35 | XMS_ITS | Clinical Summary ---
Author Organization [facility] Address [address] [place] [address] Phone Care Team Providers Care Dirt Bike Mechanic Name Role Phone Anita Madera [facility] Primary Care Provider + Allergies Active Allergy Reactions Criticality Noted Date Comments Amoxicillin Other (see Comments) Serum sickness Sulfa Antibiotics Other (see Comments) 07/11/19 17 thrush Medications diphenoxylate-at ropine (LOMOTIL) 2.5-0.025 MG TabletIndication s:once daily Indications: once daily Active SUMAtriptan Succinate (IMITREX PO) Take 25 mg by mouth daily as needed. Active clotrimazole (MYCELEX) 10 MG Daren Take 1 Daren by mouth 5 times daily. 35 Daren 0 6 Active Additional Information Patient not taking.Reported on 02/08/2019 oxybutynin (DITROPAN) 5 MG Tablet Take 5 mg by mouth 2 times daily. Active traMADol (ULTRAM) 50 MG Tablet Take 1-2 Tabs by mouth every 8 hours as needed for Pain. 12 Tab 0 7 Active azithromycin (ZITHROMAX Z-JASPAL) 250 MG Tablet 2 tab(s) daily for 1 day, then 1 tab(s) daily for days 2-5. 6 Tab 0 7 Active Additional Information Patient not taking.Reported on 02/08/2019 albuterol (PROVENTIL HFA, VENTOLIN HFA) 108 (90 BASE) MCG/ACT Aerosol Solution take 2 Puffs by inhalation every 6 hours as needed for Wheezing. 1 Inhaler 0 7 Active Additional Information Patient not taking.Reported on 02/08/2019 polyethylene glycol (MIRALAX) Powder Take 17 g by mouth daily. 17 g = 1 scoop. Dissolve in 4 -8 oz of water or other liquid. 1 Bottle 0 7 Active Additional Information Patient not taking.Reported on 02/08/2019 SUMAtriptan (IMITREX) 25 MG Tablet Take 1 Tab by mouth once as needed for Migraine for up to 1 dose. Use as directed. May repeat dose in 2 hours if headache recurs. 9 Tab 3 7 Active traMADol (ULTRAM) 50 MG Tablet Take 1 Tab by mouth every 6 hours as needed for Pain. 20 Tab 7 Active Additional Information Patient not taking.Reported on 02/08/2019 ondansetron (ZOFRAN-ODT) 4 MG TABLET DISPERSIBLE Take 1 Tab by mouth every 8 hours as needed for Nausea. 10 Tab 7 Active loperamide (IMODIUM) 2 MG Capsule Take 1 Cap by mouth as needed for Diarrhea. 30 Cap 7 Active Additional Information Patient not taking.Reported on 02/08/2019 HYDROcodone-acet aminophen (NORCO) 5-325 MG Tablet Take 1-2 Tabs by mouth every 4 hours as needed for Pain. 20 Tab 7 Active Additional Information Patient not taking.Reported on 02/08/2019 busPIRone (BUSPAR) 10 MG Tablet Take 15 mg by mouth 3 times daily. Active dicyclomine (BENTYL) 10 MG Capsule Take 10 mg by mouth 2 times daily. Active ondansetron (ZOFRAN) 4 MG Tablet Take 1 Tab by mouth every 8 hours as needed for Nausea. 10 Tab 7 Active polyethylene glycol (MIRALAX) Powder Take 17 g by mouth daily. 17 g = 1 scoop. Dissolve in 4 -8 oz of water or other liquid. 1 Bottle 7 Active Additional Information Patient not taking.Reported on 02/08/2019 oxyCODONE-acetam inophen (PERCOCET) 5-325 MG Tablet Take 1 Tab by mouth every 4 hours as needed for Pain. Active Buprenorphine HCl-Naloxone HCl (SUBOXONE SL) by Sublingual route. Active cloNIDine (CATAPRES) 0.1 MG Tablet Take 0.1 mg by mouth daily. Active mirtazapine (REMERON) 15 MG Tablet Take 15 mg by mouth nightly. Active ibuprofen (MOTRIN) 600 MG Tablet Take 1 Tab by mouth every 8 hours. 60 Tab 8 Active Additional Information Patient not taking.Reported on 02/08/2019 QUEtiapine Fumarate (SEROQUEL PO) Take by mouth. A ctive Topiramate (TOPAMAX PO) Take by mouth. Ac tive buPROPion HCl (WELLBUTRIN PO) Take by mouth. Active lactulose (CHRONULAC) 10 GM/15ML Solution Take 30 mL by mouth 2 times daily. 420 mL 3 9 Active Active Problems Problem Noted Date Diagnosed Date Chronic diarrhea Overview (05/20/2015): Well controlled on Lomotil and getting better. IBS (irritable bowel syndrome) [facility] IBD serology Overview (05/20/2015): Positive for Crohn Left flank pain Family History Medical History Relation Name Comments Heart Attack Maternal Grandfather Ovarian Cancer Paternal Aunt No Known Problems Sister Relation Name Status Comments Maternal Grandfather Paternal Aunt Sister Cancer Social History Tobacco Use Types Packs/Day Years Used Date Smoking Tobacco: Former Cigarettes 25 3 Smokeless Tobacco: Never Alcohol Use Standard Drinks/Week Comments No 0 (1 standard drink = 0.6 oz pur e alcohol) Comments No Sex and Gender Information Value Date Recorded Sex Assigned at Not on file Legal Sex Female 8:58 PM CDT Gender Identity Not on file Sexual Orientation Not on file 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 on file Not on file N ot on file Last Filed Vital Signs Vital Sign Reading Time Taken Comments Blood Pressure 116/74 02/08/2019 10:48 AM CDT Pulse 84 02/08/2019 10:48 AM CDT Temperature 36.6 C (97.8 F) 07/08/2017 5:29 PM COMPANY [employer]UNDR[employer] WORK[employer] Respiratory Rate 18 07/08/2017 5:29 PM COMPANY [employer] WORK[employer] Oxygen Saturation 98% 02/08/2019 10: 48 AM CDT Inhaled Oxygen Concentration - - Weight 59.3 kg (130 lb 12.8 oz) 019 10:48 AM CDT Height 160 cm (5' 3) 07/08/2017 5:29 PM COMPANY [employer]UNDR[employer] WORK[employer] Body Mass Index 23.17 07/08/2017 5:29 PM COMPANY [employer] WORK[employer] Plan of Treatment Health Maintenance Due Date Last Done Comments Hepatitis C Virus (HCV) Screening 1985 Mammogram 1985 Human Papillomavirus (HPV) Immunization (1 - 3-dose SCDM series) 12/02/2010 Discussion re Starting/Frequency of Mammograms 2023 Influenza Immunization (#1) 2025 SARS-COV-2 Immunization ( season) 2025 Respiratory Syncytial Virus (RSV) Immunization (Adult) (1 - 1-dose 75+ series) 12/02/2058 DTaP/Tdap/Td Immunization Discontinued 2016, 01/09/2015, 04/19/1998, Additional history exists TdaP Immunization Completed 05/02/2017, , 04/19/1998 Hepatitis B Immunization Completed 018, 02/04/2016, 01/03/2016 Meningococcal Immunization (ACWY) Aged Out No longer eligible based on patient's age to complete this topic Pneumococcal Immunization Combined Aged Out No longer eligible based on patient's age to complete this topic Rotavirus Immunization Aged Out No lo nger eligible based on patient's age to complete this topic Insurance MEDICAID [place] Care Teams Dirt Bike Mechanic Relationship Specialty Start Date End Date Anita Madera PAC [address] [place] [id number] PCP - General Advanced Practice Nurse 06/24/23
[2025-05-08 17:38] VITALS: BP 128/69; PULSE 80; RESP 14; TEMP 36.9; O2SAT 100
[2025-05-08 18:04] LABS: EDUAAPPEAR Clear; EDUABILI Negative (Negative); EDUABLOOD Negative (Negative); EDUACOLOR1 Yellow; EDUAGLUCOSE Negative (Negative); EDUAKETONE Negative (Negative); EDUALEUKO 1+ (Negative); EDUANITRATE Negative (Negative); EDUAPH 6.0; EDUAPROTEIN Negative (Negative); EDUASPGRAVITY 1.025; EDUAUROBILI 0.2
--- NOTE | 2025-05-08 18:14 | ED.FEMALEGU ---
HPI - Female Genitourinary General Chief complaint: Urogenital-Female Stated complaint: uti Time Seen by Provider: 05/08/25 17:50 Source: patient and RN notes reviewed Mode of arrival: ambulatory Limitations: no limitations History of Present Illness HPI Narrative: 39-year-old female presents [facility] complaining of urinary symptoms for 7 days. Patient reports having dysuria, increased frequency, hesitancy, low back pain. Patient denies any fevers, abdominal pain, body aches, chills, nausea, vomiting, diarrhea, vaginal bleeding, vaginal discharge. Patient has not taken anything [id number] for symptoms. Patient reports history of recurrent UTIs since she has been going through menopause. Patient says she has seen a urologist before for bladder sling Related Data Home Medications ?Medication ?Instructions ?Recorded ?Confirmed ?Last Taken ?Type buprenorphine 8 mg-naloxone 2 mg 1 film buccal TID 08/23/20 06/22/24 Unknown History sublingual film sumatriptan succinate 50 mg tablet 50 mg PO USEASDIRECTD PRN Migraine 04/06/23 02/29/24 Unknown History Headache topiramate 50 mg tablet mg 06/22/24 Unknown History Allergies Allergy/AdvReac Type Severity Reaction Status Date / Time amoxicillin Allergy Unknown SERUM Verified 05/08/25 17:55 SICKNESS Sulfa (Sulfonamide AdvReac Unknown THRUSH Verified 05/08/25 17:55 Antibiotics) Review of Systems Review of Systems: CONSTITUTIONAL: Denies fever, chills, body aches, or sweats. EYES: Denies visual changes, redness, or discharge. ENT: Denies rhinorrhea, congestion, sore throat, or otalgia. CARDIOVASCULAR: Denies chest pain, palpitations, or edema. RESPIRATORY: Denies cough or dyspnea. GASTROINTESTINAL: Denies abdominal pain, nausea, vomiting, or diarrhea. GENITOURINARY: Positive for dysuria, hesitancy, increased frequency. Negative for hematuria vaginal bleeding, vaginal discharge. SKIN: Denies rash or itching. MUSCULOSKELETAL: Denies flank pain joint pain, or myalgia. Positive for low back pain. NEUROLOGIC: Denies headache, numbness, or weakness. PSYCHIATRIC: Denies anxiety or depression. All other systems reviewed are negative, except as documented in HPI. [facility] Past Medical History Medical History Anxiety Depression Prolapsed bladder Left inguinal hernia Pneumonia June 2016 Bronchitis Kidney stones Hx of migraines History of colitis Surgical History Surgical History History of hysterectomy H/O tubal ligation Family History Family History Mother Family history non-contributory Social History Social History Substance use: former Other substance usage details: Patient on Suboxone Living arrangements: with family Gender identity (if verbalized by the patient): Female Spiritual care concerns: No Comments At the time of my signature, I reviewed and agree with the nursing past medical, surgical, social, and family history. There is no relevant family history pertinent to the patient complaint. Exam Narrative: GENERAL: This is a well-nourished, well-developed adult, in no apparent distress. They are non ill-appearing, nontoxic appearing. HEAD: normocephalic, atraumatic. EYES: Sclera clear/white. Vision is grossly intact. Conjunctiva normal bilaterally. Extraocular movements intact. EARS: External ears normal,Hearing grossly intact. NOSE: External nose normal THROAT: Mucous membranes moist NECK: Normal range of motion CARDIOVASCULAR: Regular rate and rhythm. Normal S1-S2. No clicks, gallops, rubs, murmurs. RESPIRATORY: Respiratory rate normal, respiratory effort nonlabored, no respiratory distress. Lung sounds clear to auscultation throughout. Lung sounds equal bilaterally. No adventitious lung sounds. GASTROINTESTINAL: Abdomen soft, flat, non-tender, nondistended. SKIN: warm, Dry, intact with no suspicious lesions or rash, good texture and turgor. NEURO: awake, alert, and oriented to person, place and time. There were no obvious focal neurologic abnormalities. EXTREMITIES: No joint tenderness, effusion, or edema noted. BACK: Nontender without deformity. No CVA tenderness. Course Course Emergency Course: Portions of this record may have been created with voice recognition software Level of Care: Express Care Visit Vital Signs Vital signs: Vital Signs Temperature 98.4 F 05/08/25 17:38 Pulse Rate 80 05/08/25 17:38 Respiratory Rate 14 05/08/25 17:38 Blood Pressure 128/69 05/08/25 17:38 Pulse Oximetry 100 05/08/25 17:38 Oxygen Delivery Room Air 05/08/25 17:38 Temperature 98.4 F 05/08/25 17:38 Pulse Rate 80 05/08/25 17:38 Respiratory Rate 14 05/08/25 17:38 Blood Pressure 128/69 05/08/25 17:38 Pulse Oximetry 100 05/08/25 17:38 Oxygen Delivery Room Air 05/08/25 17:38 MDM - Female Genitourinary MDM Narrative Medical decision making narrative: Urine dipstick shows 1+ leukocytes. Symptoms consistent with UTI. Urine culture pending. Given patient's resistant on previous culture result for E coli, will treat with Macrobid as it appeared susceptible last time. Patient has allergies to sulfas and penicillins. Discussed physical exam findings. Advised supportive measures and signs/symptoms to go to the ER. Pt is appropriate for outpt treatment and f/u. Differential Diagnosis Differential diagnosis: Likely urinary tract infection, cystitis and other (Pyelonephritis) Lab Data Attestation: I reviewed the patient's lab results. Labs: Lab Results 05/08/25 Range/Units 17:48 POC Urine Color Yellow POC Urine Clarity Clear POC Urine pH 6.0 POC Ur Specif [place] 1.025 POC Urine Protein Negative (Negative) POC Ur Glucose (UA) Negative (Negative) POC Urine Ketones Negative (Negative) POC Urine Blood Negative (Negative) POC Urine Nitrite Negative (Negative) POC Urine Bilirubin Negative (Negative) POC Urine Urobilinogen 0.2 POC U Leukocyte Esteras 1+ (Negative) Discharge Plan Discharge Clinical Impression: Urinary tract infection Qualifiers: Urinary tract infection type: site unspecified Hematuria presence: without hematuria Qualified Code(s): N39.0 - Urinary tract infection, site not specified Patient Disposition: Home Condition: Stable Instructions: Antibiotic Form, Urinary Tract Infection in Women (ED) Additional Instructions: Take the antibiotic as prescribed The urine will be sent of for a culture to identify what type of bacteria is causing your infection. If the culture shows that the antibiotic will not get rid of your infection, you will be notified and a new antibiotic will be called in for you. Increase water intake you will need to follow up with your PCP 3-5 days. Go to the ER for any worsening symptoms, abdominal pain, flank pain, fevers, nausea, vomiting, or any other concerns Patient Language: Maldivian Prescriptions: New nitrofurantoin monohyd/m-cryst [Macrobid] 100 mg capsule 100 mg PO Q12H 5 Days Qty: 10 0RF Rx Instructions: must administer with a meal/food fluconazole 150 mg tablet 150 mg PO Q72H Qty: 2 0RF Rx Instructions: may repeat dose after 72 hours if symptoms persist No Action sumatriptan succinate 50 mg tablet 50 mg PO USEASDIRECTD PRN (Reason: Migraine Headache) topiramate 50 mg tablet buprenorphine-naloxone 8-2 mg film 1 film buccal TID Follow-up/Referrals: Cassy,SEBAS Howard [Primary Care Provider] Time of Disposition: 18:08
== END 2025-05-08 18:10 | disposition home or self-care (01) ==
PROVIDERS: PCP Physician Assistant
DX: N39.0 Urinary tract infection, site not specified (principal)
CPT/HCPCS: 81003; 87077; 87086; 87186; 99213; G0463